=== PATIENT | male | born 1970 | race Caucasian/White ===

== ENCOUNTER 2020-10-19 08:55 | Emergency (ER) | payer OTHER, SELFPAY ==
--- NOTE | ~2020-10-19 | XR_ITS ---
EXAMINATION: XR hand RT min 3V EXAM DATE: 10/19/2020 09:24 INDICATION: Fall, rt hand injury 2days ago, attention 1st digit. Initial encounter. TECHNIQUE: Right hand frontal, lateral and oblique projections obtained and reviewed. There is no pr ior study for comparison. FINDINGS: Right metacarpal bones are unremarkable. There is acute closed posttraumatic fracture thr ough the base of the right 1st distal phalanx. There is no displacement. This finding has been indica darcie, marked on the examination for review, clinical correlation. There is overlying soft tissue swe lling. No other suspicious findings. IMPRESSION: Acute nondisplaced right 1st distal phalangeal intra-articular fracture. Reviewed, dictated and finalized at location A. [facility] IMPRESSION: Acute nondisplaced right 1st distal phalangeal intra-articular fra cture.
[2020-10-19 09:15] VITALS: BP 151/96; PULSE 73; RESP 18; TEMP 37.2; O2SAT 98
[2020-10-19 09:18] VITALS: BP 151/96; PULSE 73; RESP 18; TEMP 37.2; O2SAT 98
--- NOTE | 2020-10-19 10:11 | ED.GENADULT ---
HPI - General Adult General Chief complaint: Extremity Injury, Upper Stated complaint: lt thumb and facial inj Time Seen by Provider: 10/19/20 09:57 Source: patient and RN notes reviewed Mode of arrival: ambulatory Limitations: no limitations History of Present Illness HPI narrative: Patient presents today complaining of an injury to the right and the nasal bridge. Patient was taking his trash out 2 days ago and fell. His glasses cut the nasal bridge and he fell into some rocks, cutting his. His tetanus shot is up-to-date. He currently rates the pain in his thumb 04/02. He has been applying ice and taking ibuprofen with some relief. He has also been applying Neosporin to his nose. States swelling in his hand has brought him in today. MD complaint: Right thumb injury Related Data Allergies Allergy/AdvReac Type Severity Reaction Status Date / Time No Known Allergies Allergy Unverified 10/19/20 09:11 Review of Systems Review of Systems: Narrative: CONSTITUTIONAL: Denies body aches, fever, chills, or sweats. EYES: Denies visual changes, redness, or discharge. ENT: Denies rhinorrhea, congestion, sore throat, or otalgia. CARDIOVASCULAR: Denies chest pain, palpitations, or edema. RESPIRATORY: Denies cough or dyspnea. GASTROINTESTINAL: Denies abdominal pain, nausea, vomiting, or diarrhea. GENITOURINARY: Denies dysuria or hematuria. SKIN: Denies rash, itching. + Nasal bridge injury MUSCULOSKELETAL: Denies back pain, or myalgia. + Right wrist finger injury NEUROLOGIC: Denies headache, numbness, tingling, or weakness. PSYCH: Denies depression or anxiety. PMFSH Comments At time of signature, I have reviewed and agree with nursing past medical, surgical, social and family history unless otherwise noted. Please see nursing chart for further information. There is no relevant family history pertinent to the presenting complaint Exam Narrative: Exam Narrative: GENERAL: Well-appearing, well-nourished, and in no acute distress. HEAD: Normocephalic, atraumatic. EYES: EOMI. No redness or drainage. Conjunctivae normal. ENT: Mucous membranes pink and moist. Nares clear. No rhinorrhea. 1x2cm superficial abrasion to the nasal bridge without evidence of infection. Area has started to scab. NECK: Normal AROM. Supple. No lymphadenopathy. CHEST: No respiratory distress. EXTREMITIES: Right hand: Superficial scabbed and ecchymotic linear laceration to the dorsum of the right first finger at the interphalangeal joint. The finger is moderately edematous. This edema extends to the dorsum of the hand and fingers 2 and 3. The hand and affected fingers are also erythematous. First finger has increased warmth, extending to the base of the finger. No red streaking noted. Distal sensation is intact at the first finger, but decreased. Capillary refill normal. AROM of the affected finger is decreased due to pain and swelling. SKIN: Warm, dry, no rash. Capillary refill normal. Normal skin turgor. NEURO: No focal deficits. Alert and oriented x3. Gait steady. PSYCH: Normal affect. No signs of depression or anxiety. Course Vital Signs Vital signs: Vital Signs Temperature 99.0 F 10/19/20 09:15 Pulse Rate 73 10/19/20 09:15 Respiratory Rate 18 10/19/20 09:15 Blood Pressure 151/96 H 10/19/20 09:15 Pulse Oximetry 98 10/19/20 09:15 Temperature 99.0 F 10/19/20 09:18 Pulse Rate 73 10/19/20 09:18 Respiratory Rate 18 10/19/20 09:18 Blood Pressure 151/96 H 10/19/20 09:18 Pulse Oximetry 98 10/19/20 09:18 Reviewed. Pt has been instructed to follow up with his PCP regarding his elevated blood pressure today. Procedures Orthopedic Splinting/Casting Injury #1: Splinting/Casting Date: 10/19/20 Splinting/Casting Time: 10:18 Side: right Upper Extremity Injury Location: finger Upper Extremity Immobilizer: aluminum form splint Splint: prefabricated Pre-Procedure Neuro Vascular Exam:
== END 2020-10-19 10:27 | disposition home or self-care (01) ==
PROVIDERS: Emergency Provider Nurse Practitioner; PCP Physician Assistant
DX: S62.524A Nondisplaced fracture of distal phalanx of right thumb, initial encounter for closed fracture (principal); W19.XXXA Unspecified fall, initial encounter; L03.113 Cellulitis of right upper limb; S00.31XA Abrasion of nose, initial encounter
CPT/HCPCS: 29130; 73130; 99214; G0463